=== PATIENT | male | born 1945 | race Hispanic/Latino ===

== ENCOUNTER 2017-07-03 14:06 | Inpatient (IN) | payer MEDICARE ==
[2017-07-03 17:45] LABS: Hematocrit 32.5 % (35.5-45.6); Hemoglobin 11.3 gm/dl (11.8-15.2); Mean Corpuscular HGB Conc 35 % (32-34); Mean Corpuscular Hemoglobin 30 pg (28-32); Mean Corpuscular Volume 87 fl (84-94); Platelet Count 142 K/mm3 (140-440); Red Blood Count 3.75 M/mm3 (3.65-5.03); Red Cell Distribution Width 14.5 % (13.2-15.2)
[2017-07-03 18:14] LABS: Albumin 3.5 g/dL (3.9-5); Calcium 8.2 mg/dL (8.4-10.2)
--- NOTE | 2017-07-03 20:44 | History and Physical Report ---
History of Present Illness Date of admission: 07/03/17 16:46 Chief complaint: My legs are swollen, and im short of breath History of present illness: 72 YO Male with Systolic CHF, HTN, DM, CKD-3, Anemia, vitamin D Deficiency admitted directly at the request for [facility] for CHF Decompensation. Pt seen and evaluated upon arrival to telemetry floor. 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 Pt acknowledges leg swelling, and shortness of breath, Orthopnea/PND. Pt denies fever, chill, CP, Palpitations, NVD, Medication Noncompliance, Syncope, Trauma, Productive cough, unilateral leg swelling, prolonged travel/immobility, individual/family history of DVT/PE. Pt found to have symptoms of Acute CHF decompensation. Pt initiated on CHF protocol. Past History Past Medical History: cancer, diabetes, heart failure, hyperlipidemia, renal failure Past Surgical History: bowel surgery Social history: , lives with family. denies: smoking, alcohol abuse, prescription drug abuse Family history: diabetes, hypertension Medications and Allergies Allergies Allergy/AdvReac Type Severity Reaction Status Date / Time No Known Allergies Allergy Unverified 07/03/17 14:13 Home Medications Medication Instructions Recorded Confirmed Last Taken Type Allopurinol 100 mg PO 07/03/17 07/02/17 History Aspirin 81 mg PO 07/03/17 07/02/17 History Fish Oil EC 1,200 mg Softgel 1,200 mg 07/03/17 07/02/17 History Furosemide [Lasix TAB] 40 mg PO 07/03/17 07/02/17 History Hydralazine HCl 50 mg PO 07/03/17 07/02/17 History Losartan Potassium 25 mg PO 07/03/17 07/02/17 History Metoprolol [Lopressor TAB] 5 mg PO 07/03/17 1 Day Ago History ~07/02/17 Vitamin D3 1,000 units PO 07/03/17 07/02/17 History amLODIPine [Norvasc] 10 mg PO 07/03/17 07/02/17 History cloNIDine [Catapres] 0.2 mg PO 07/03/17 1 Day Ago History ~07/02/17 glipiZIDE [glipiZIDE XL] 5 mg PO 07/03/17 07/02/17 10:00 History Active Meds: Active Medications Furosemide (Lasix) 40 mg IV BID TETE Review of Systems Constitutional: weight gain, no fever, no chills, no sweats, no night sweats Ears, nose, mouth and throat: no ear pain, no ear discharge, no tinnitis, no decreased hearing, no nose pain, no nasal congestion, no nasal discharge, no sinus pressure Cardiovascular: orthopnea, shortness of breath, paroxysmal nocturnal dyspnea, leg edema, decreased exercise tolerance, no chest pain, no palpitations, no rapid/irregular heart beat Respiratory: no cough with sputum, no excessive sputum, no hemoptysis Gastrointestinal: no abdominal pain, no nausea, no vomiting, no diarrhea, no constipation, no change in bowel habits Genitourinary Male: no hematuria, no flank pain, no discharge, no urinary frequency, no urinary hesitancy, no nocturia Rectal: no pain, no incontinence, no bleeding Musculoskeletal: no neck pain, no shooting arm pain, no arm numbness/tingling, no low back pain, no shooting leg pain Integumentary: no rash, no pruritis, no redness, no sores, no wounds, no jaundice Neurological: no head injury, no transient paralysis, no paralysis, no weakness , no parathesias, no numbness, no tingling, no seizures, no syncope Psychiatric: no anxiety, no memory loss, no change in sleep habits, no sleep disturbances, no insomnia Endocrine: no cold intolerance, no heat intolerance, no polyphagia, no excessive thirst, no polydipsia, no polyuria, no other Hematologic/Lymphatic: no easy bruising, no easy bleeding, no lymphadenopathy, no lymphedema Allergic/Immunologic: no urticaria, no allergic rhinitis, no wheezing Exam - Constitutional Vitals: Temp Pulse Resp BP Pulse Ox 97.7 F 53 L 53 H 190/74 97 07/03/17 19:11 07/03/17 19:12 07/03/17 19:11 07/03/17 17:57 07/03/17 19:12 General appearance: Present: mild distress, obese - EENT Eyes: Present: PERRL ENT: hearing intact, clear oral mucosa - Neck Neck: Present: supple, normal ROM - Respiratory Respiratory effort: labored Respiratory: bilateral: diminished, wheezing - Cardiovascular Heart Sounds: Present: S1 & S2. Absent: rub, click - Extremities Extremities: pulses symmetrical, No edema Extremity abnormal: edema Peripheral Pulses: within normal limits - Abdominal General gastrointestinal: Present: soft, non-tender, non-distended, normal bowel sounds Male genitourinary: Present: normal - Integumentary Integumentary: Present: clear, warm, dry - Musculoskeletal Musculoskeletal: gait normal, strength equal bilaterally - Psychiatric Psychiatric: appropriate mood/affect, intact judgment & insight - Neurologic Neurologic: CNII-XII intact, moves all extremities Results - Labs CBC & Chem 7: 18 17:33 18 17:33 Labs: Abnormal lab results 07/03/1718 Range/Units 17:33 17:33 Hgb 11.3 L (11.8-15.2) gm/dl Hct 32.5 L (35.5-45.6) % MCHC 35 H (32-34) % BUN 25 H (9-20) mg/dL Creatinine 2.3 H (0.8-1.5) mg/dL Glucose 112 H (75-100) mg/dL Calcium 8.2 L (8.4-10.2) mg/dL Alkaline Phosphatase 136 H (35-129) units/L NT-Pro-B Natriuret Pep 2219 H (0-900) pg/mL Albumin 3.5 L (3.9-5) g/dL Assessment and Plan - Patient Problems (1) CHF (congestive heart failure) Current Visit: Yes Status: Acute Qualifiers: Heart failure type: systolic Heart failure chronicity: acute on chronic Qualified Code(s): I50.23 - Acute on chronic systolic (congestive) heart failure Plan to address problem: Direct Admit to telemetry as per Cardiology request :Diuresis, supplemental oxygen, nebulizer therapy, strici I/O, Daily weight, further orders and cardiology testing as per cardiology team. (2) Acute respiratory failure Current Visit: Yes Status: Acute Qualifiers: Respiratory failure complication: hypoxia Qualified Code(s): J96.01 - Acute respiratory failure with hypoxia Plan to address problem: supplemental oxygen, nebulizer therapy, treat CHF, diuresis, supportive care, NIPPV as clinically indicated (3) HTN (hypertension) Current Visit: Yes Status: Acute Qualifiers: Hypertension type: essential hypertension Qualified Code(s): I10 - Essential (primary) hypertension Plan to address problem: resume home medication, monitor BP q shift, IV hydralazine prn (4) CKD (chronic kidney disease), stage III Current Visit: Yes Status: Acute Plan to address problem: supportive care, monitor uop q shift, strict I/O, avoid nephrotoxic agents (5) Diabetes Current Visit: Yes Status: Acute Plan to address problem: Consistent Carbohydrate diet, Insulin, accu check (6) DVT prophylaxis Current Visit: Yes Status: Acute Plan to address problem: SCD to BLE while in bed
[2017-07-03] MEDS ORDERED: TYLENOL PO PRN (20:47)
[2017-07-03] MEDS ORDERED: PROVENTIL IH PRN (20:47)
[2017-07-03] MEDS ORDERED: SODIUM CHLORIDE FLUSH SYRINGE 10 ML IV PRN (20:47)
[2017-07-03] MEDS ORDERED: ZOFRAN IV PRN (20:47)
[2017-07-03] MEDS ORDERED: D50W (25GM) Syringe IV PRN (21:05)
--- NOTE | 2017-07-03 21:28 | XRay Report ---
FINAL REPORT PROCEDURE: XR CHEST 1V AP TECHNIQUE: Chest radiograph anteroposterior view. CPT 80142 HISTORY: HF, sob COMPARISON: No prior studies are available for comparison. FINDINGS: Heart: Heart is mildly enlarged. There has been open heart surgery. Mediastinum/Vessels: Normal. Lungs/Pleural space: The right hemidiaphragm is slightly elevated. There atelectasis and/or infiltrate at the right lung base. There are no pleural effusions. There is no pneumothorax.. Bony thorax: No acute osseous abnormality. Life support devices: None. IMPRESSION: Heart is mildly enlarged. There has been open heart surgery. The right hemidiaphragm is slightly elevated. There atelectasis and/or infiltrate at the right lung base. There are no pleural effusions. There is no pneumothorax.. .
[2017-07-03] MEDS: LASIX IV SCH (22:25)
[2017-07-03] MEDS: SODIUM CHLORIDE FLUSH SYRINGE 10 ML IV SCH (22:25)
[2017-07-03] MEDS: CATAPRES PO SCH (22:25)
[2017-07-03] MEDS: APRESOLINE IV PRN (22:26)
[2017-07-04] MEDS: HumuLIN R SUB-Q SCH ×4 (03:51→16:56)
[2017-07-04] MEDS ORDERED: NON-FORMULARY (Aspirin 81 MG) PO SCH (10:00)
[2017-07-04] MEDS ORDERED: LOPRESSOR PO SCH ×3 (10:00→22:00)
[2017-07-04] MEDS: NORVASC PO SCH (10:24)
[2017-07-04] MEDS: CATAPRES PO SCH ×2 (10:26→22:20)
[2017-07-04] MEDS: ZYLOPRIM PO SCH (10:27)
[2017-07-04] MEDS: LASIX IV SCH ×2 (10:27→22:20)
[2017-07-04] MEDS: BABY ASPIRIN PO SCH (10:27)
[2017-07-04] MEDS: SODIUM CHLORIDE FLUSH SYRINGE 10 ML IV SCH (10:27)
--- NOTE | 2017-07-04 12:33 | Consultation ---
History of Present Illness Consult date: 07/04/17 Requesting physician: RAY IRELAND History of present illness: The pt is a 73 YO male with a past medical history significant for CAD s/p CABG x5 at [facility] in 2011, HTN, DM, CKD, heart failure, cardiomyopathy. He was seen in our office in consultation yesterday per Dr. Zaire Christina. Pt presented to our office with c/o progressively worsening SOB, BEASLEY, orthopnea, PND and BLE edema for several weeks prior to arrival. He was found to be in heart failure and was directly admitted per Dr. Ireland for further eval/management. Pt denies any chest pain, palpitations, n/v, diaphoresis, dizziness or syncope. Echo done in our office yesterday showed normal LV function with mild diastolic dysfunction. Past History Past Medical History: diabetes, heart failure, hypertension, renal failure Past Surgical History: CABG, bowel surgery Social history: , lives with family. denies: smoking, alcohol abuse, prescription drug abuse Family history: diabetes, hypertension Medications and Allergies Allergies Allergy/AdvReac Type Severity Reaction Status Date / Time No Known Allergies Allergy Unverified 07/03/17 14:13 Home Medications Medication Instructions Recorded Confirmed Last Taken Type Allopurinol 100 mg PO BID 07/03/17 07/04/17 Unknown History Aspirin 81 mg PO DAILY 07/03/17 07/04/17 Unknown History Fish Oil EC 1,200 mg Softgel 1,200 mg DAILY 07/03/17 07/04/17 Unknown History Furosemide [Lasix TAB] 40 mg PO DAILY 07/03/17 07/04/17 Unknown History Hydralazine HCl 50 mg PO Q8H 07/03/17 07/04/17 Unknown History Losartan Potassium 25 mg PO DAILY 07/03/17 07/04/17 Unknown History Metoprolol [Lopressor TAB] 5 mg PO BID 07/03/17 07/04/17 Unknown History Vitamin D3 1,000 units PO QWEEK 07/03/17 07/04/17 Unknown History amLODIPine [Norvasc] 10 mg PO DAILY 07/03/17 07/04/17 Unknown History cloNIDine [Catapres] 0.2 mg PO BID 07/03/17 07/04/17 Unknown History glipiZIDE [glipiZIDE XL] 5 mg PO BID 07/03/17 07/04/17 Unknown History Active Meds: Active Medications Acetaminophen (Tylenol) 650 mg PO Q4H PRN PRN Reason: Pain MILD(1-3)/Fever >100.5/ZARATE Albuterol (Proventil) 2.5 mg IH Q4HRT PRN PRN Reason: Shortness Of Breath Allopurinol (Zyloprim) 100 mg PO DAILY [facility] Last Admin: 07/04/17 10:27 Dose: 100 mg Amlodipine Besylate (Norvasc) 10 mg PO DAILY [facility] Last Admin: 07/04/17 10:24 Dose: 10 mg Aspirin (Baby Aspirin) 81 mg PO QDAY [facility] Last Admin: 07/04/17 10:27 Dose: 81 mg Clonidine HCl (Catapres) 0.2 mg PO Q12HR [facility] Last Admin: 07/04/17 10:26 Dose: 0.2 mg Dextrose (D50w (25gm) Syringe) 50 ml IV PRN PRN PRN Reason: Hypoglycemia Furosemide (Lasix) 40 mg IV BID [facility] Last Admin: 07/04/17 10:27 Dose: 40 mg Hydralazine HCl (Apresoline) 10 mg IV Q4HR PRN PRN Reason: Hypertension Last Admin: 07/03/17 22:26 Dose: 10 mg Insulin Human Regular (Humulin R) 0 units SUB-Q ACHS [facility]; Protocol Metoprolol Tartrate (Lopressor) 50 mg PO QDAY [facility] Ondansetron HCl (Zofran) 4 mg IV Q8H PRN PRN Reason: Nausea And Vomiting Sodium Chloride (Sodium Chloride Flush Syringe 10 Ml) 10 ml IV PRN PRN PRN Reason: LINE FLUSH Sodium Chloride (Sodium Chloride Flush Syringe 10 Ml) 10 ml IV BID [facility] Last Admin: 07/04/17 10:27 Dose: 10 ml Review of Systems Constitutional: no fever, no chills, no sweats Ears, nose, mouth and throat: no nose pain, no sinus pressure, no sinus pain Cardiovascular: orthopnea, edema, shortness of breath, dyspnea on exertion, paroxysmal nocturnal dyspnea, high blood pressure, leg edema, decreased exercise tolerance, no chest pain, no palpitations, no rapid/irregular heart beat, no syncope, no lightheadedness Respiratory: shortness of breath, dyspnea on exertion, no cough, no congestion, no wheezing, no pain on inspiration Gastrointestinal: no abdominal pain, no nausea, no vomiting, no diarrhea, no constipation, no change in bowel habits, no hematemesis Genitourinary Male: no dysuria, no hematuria, no flank pain, no discharge, no urinary frequency, no urinary hesitancy Musculoskeletal: no neck stiffness, no neck pain, no shooting arm pain, no arm numbness/tingling, no low back pain, no shooting leg pain, no leg numbness/ tingling, no redness of joints Integumentary: no rash, no pruritis, no redness, no sores, no wounds Neurological: no head injury, no paralysis, no weakness, no parathesias, no numbness, no tingling, no seizures, no syncope Psychiatric: no anxiety Endocrine: no cold intolerance, no heat intolerance Hematologic/Lymphatic: no easy bruising, no easy bleeding Allergic/Immunologic: no urticaria, no wheezing, no persistent infections Physical Examination Vital Signs Pulse 59 L 07/03/17 17:02 General appearance: no acute distress HEENT: Positive: PERRL, Normocephaly, Mucus Membranes Moist Neck: Positive: neck supple, trachea midline Cardiac: Positive: Reg Rate and Rhythm, S1/S2, Systolic Murmur Lungs: Positive: Decreased Breath Sounds Neuro: Positive: Grossly Intact, Cranial Nerve 2-12 Intact Abdomen: Positive: Soft. Negative: Tender Skin: Positive: Clear. Negative: Rash, Wound Musculoskeletal: No Pain, Normal Range of Motion Extremities: Present: +2 Edema (BLE) Results 07/03/17 17:33 07/03/17 17:33 Cardiac Enzymes 07/03/17 Range/Units 17:33 AST 21 (5-40) units/L CBC 07/03/17 Range/Units 17:33 WBC 6.7 (4.5-11.0) K/mm3 RBC 3.75 (3.65-5.03) M/mm3 Hgb 11.3 L (11.8-15.2) gm/dl Hct 32.5 L (35.5-45.6) % Plt Count 142 (140-440) K/mm3 Comprehensive Metabolic Panel 07/03/17 Range/Units 17:33 Sodium 142 (137-145) mmol/L Potassium 4.4 (3.6-5.0) mmol/L Chloride 102.6 (98-107) mmol/L Carbon Dioxide 22 (22-30) mmol/L BUN 25 H (9-20) mg/dL Creatinine 2.3 H (0.8-1.5) mg/dL Glucose 112 H (75-100) mg/dL Calcium 8.2 L (8.4-10.2) mg/dL AST 21 (5-40) units/L ALT 16 (7-56) units/L Alkaline Phosphatase 136 H (35-129) units/L Total Protein 6.7 (6.3-8.2) g/dL Albumin 3.5 L (3.9-5) g/dL - Imaging and Cardiology Echo: report reviewed EKG: report reviewed, image reviewed EKG interpretations - Telemetry EKG Rhythm: Sinus Rhythm - EKG Sinus rhythms and dysrhythmias: sinus rhythm Assessment and Plan Assessment: Acute diastolic heart failure CAD s/p CABG Accelerated HTN DM CKD Plan: Cont diuresis with IV lasix. Monitor renal indices. Optimize anti-hypertensive regimen. Obtain nephrology consultation. Assessment and plan reviewed with pt at bedside. The patient has been seen in conjunction with Dr. Zaire Christina who agrees with the assessment and plan of care.
[2017-07-04] MEDS ORDERED: LOPRESSOR PO NR (13:00)
[2017-07-04 13:41] LABS: Calcium 8.4 mg/dL (8.4-10.2)
--- NOTE | 2017-07-04 17:33 | Consultation ---
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 Pt was directly admitted for IV diuretic therapy. renal consult was requested for management of TAPAN on CKD along with volume management. Pt was last seen by me in Apr 2017, when his baseline Cr was around 1.9- 2mg/dl, at that time patient was found to have worsening proteinuria in nephrotic range, and was restarted on losartan. Pt denies fever, chills, nausea, vomiting, CP, palpitations, dysuria, rash, dizziness, blurry vision, no recent NSAIDs or IV contrast exposure reported. Echo in cardiology office reportedly showed normal LV function with mild diastolic dysfunction. Past History Past Medical History: diabetes, heart failure, hypertension, renal failure Past Surgical History: CABG, bowel surgery Social history: , lives with family. denies: smoking, alcohol abuse, prescription drug abuse Family history: diabetes, hypertension Medications and Allergies Allergies Allergy/AdvReac Type Severity Reaction Status Date / Time No Known Allergies Allergy Unverified 07/03/17 14:13 Home Medications Medication Instructions Recorded Confirmed Last Taken Type Allopurinol 100 mg PO BID 07/03/17 07/04/17 Unknown History Aspirin 81 mg PO DAILY 07/03/17 07/04/17 Unknown History Fish Oil EC 1,200 mg Softgel 1,200 mg DAILY 07/03/17 07/04/17 Unknown History Furosemide [Lasix TAB] 40 mg PO DAILY 07/03/17 07/04/17 Unknown History Hydralazine HCl 50 mg PO Q8H 07/03/17 07/04/17 Unknown History Losartan Potassium 25 mg PO DAILY 07/03/17 07/04/17 Unknown History Metoprolol [Lopressor TAB] 5 mg PO BID 07/03/17 07/04/17 Unknown History Vitamin D3 1,000 units PO QWEEK 07/03/17 07/04/17 Unknown History amLODIPine [Norvasc] 10 mg PO DAILY 07/03/17 07/04/17 Unknown History cloNIDine [Catapres] 0.2 mg PO BID 07/03/17 07/04/17 Unknown History glipiZIDE [glipiZIDE XL] 5 mg PO BID 07/03/17 07/04/17 Unknown History Active Meds: Active Medications Acetaminophen (Tylenol) 650 mg PO Q4H PRN PRN Reason: Pain MILD(1-3)/Fever >100.5/ZARATE Albuterol (Proventil) 2.5 mg IH Q4HRT PRN PRN Reason: Shortness Of Breath Allopurinol (Zyloprim) 100 mg PO DAILY [facility] 234 BEDS AT [facility] Last Admin: 07/04/17 10:27 Dose: 100 mg Amlodipine Besylate (Norvasc) 10 mg PO DAILY [facility]CLUDE 234 BEDS AT [facility] Last Admin: 07/04/17 10:24 Dose: 10 mg Aspirin (Baby Aspirin) 81 mg PO QDAY [facility]S [facility]CLUDE 234 BEDS AT [facility] Last Admin: 07/04/17 10:27 Dose: 81 mg Clonidine HCl (Catapres) 0.2 mg PO Q12HR [facility]S [facility]CLUDE 234 BEDS AT [facility] Last Admin: 07/04/17 10:26 Dose: 0.2 mg Dextrose (D50w (25gm) Syringe) 50 ml IV PRN PRN PRN Reason: Hypoglycemia Furosemide (Lasix) 40 mg IV BID [facility]CLUDE 234 BEDS AT [facility] Last Admin: 07/04/17 10:27 Dose: 40 mg Hydralazine HCl (Apresoline) 10 mg IV Q4HR PRN PRN Reason: Hypertension Last Admin: 07/03/17 22:26 Dose: 10 mg Insulin Human Regular (Humulin R) 0 units SUB-Q [facility]CLUDE 234 BEDS AT THE [facility]; Protocol Last Admin: 07/04/17 16:56 Dose: Not Given Metoprolol Tartrate (Lopressor) 100 mg PO BID [facility]CLUDE 234 BEDS AT [facility] Ondansetron HCl (Zofran) 4 mg IV Q8H PRN PRN Reason: Nausea And Vomiting Sodium Chloride (Sodium Chloride Flush Syringe 10 Ml) 10 ml IV PRN PRN PRN Reason: LINE FLUSH Sodium Chloride (Sodium Chloride Flush Syringe 10 Ml) 10 ml IV BID [facility]CLUDE 234 BEDS AT [facility] Last Admin: 07/04/17 10:27 Dose: 10 ml Review of Systems All systems: negative Constitutional: weakness Cardiovascular: orthopnea, edema, shortness of breath, dyspnea on exertion, paroxysmal nocturnal dyspnea Exam - Vital Signs Vital signs: Vital Signs Pulse 59 L 07/03/17 17:02 - General Appearance General appearance: well-developed, well-nourished, appears stated age, obese EENT: ATNC, PERRL, mucous membranes moist Neck: Present: neck supple Respiratory: Decreased Breath Sounds Heart: regular, S1S2 Gastrointestinal: Present: normoactive bowel sounds, obese Integumentary: no rash, other (2-3+ b/l LE edema ) Neurologic: no focal deficit, alert and oriented x3, strength 5/5, CN 3-12 intact Psychiatric: mood/affect appropriate, cooperative Results - Lab Results 07/03/17 17:33 07/04/17 13:06 Most recent lab results Calcium 8.4 mg/dL (8.4-10.2) 07/04/17 13:06 Laboratory Tests 07/03/17 17:33 Calcium 8.2 L Total Bilirubin 0.50 AST 21 ALT 16 Alkaline Phosphatase 136 H NT-Pro-B Natriuret Pep 2219 H Total Protein 6.7 Albumin 3.5 L Albumin/Globulin Ratio 1.1 Assessment and Plan - Patient Problems (1) Acute respiratory failure Current Visit: Yes Status: Acute Qualifiers: Respiratory failure complication: hypoxia Qualified Code(s): J96.01 - Acute respiratory failure with hypoxia Plan to address problem: respiratory status improved with IV lasix, will add metolazone for further volume control. (2) Fluid overload Current Visit: Yes Status: Acute Plan to address problem: likely due to combination of nephrotic syndrome, CKD and chronic diastolic HF. Will cont IV lasix 40mg bid along with metolazone 10mg po qd. will titrate diuretics to target net negative fluid balance < 1L/day. (3) Type 2 diabetes mellitus with diabetic chronic kidney disease Current Visit: Yes Status: Chronic Qualifiers: Chronic kidney disease stage: stage 3 (moderate) Plan to address problem: glucose control as per primary attending (4) Nephrotic range proteinuria Current Visit: Yes Status: Acute Plan to address problem: likely secondary to diabetic nephropathy. cont losartan. glucose control as per primary attending. (5) CHF (congestive heart failure) Current Visit: Yes Status: Acute Qualifiers: Heart failure type: diastolic Heart failure chronicity: acute on chronic Qualified Code(s): I50.33 - Acute on chronic diastolic (congestive) heart failure Plan to address problem: cont BB, diuresis with lasix/metolazone. follow cardiology recommendations. fluid restriction to 1.5L/day, daily weight, strict I/Os (6) Hypertensive chronic kidney disease with stage 1 through stage 4 chronic kidney disease, or unspecified chronic kidney disease Current Visit: Yes Status: Chronic Plan to address problem: BP remains elevated, added metolazone 10mg po qd for further volume / BP control. pt is on amlodipine 10mg po qd. Since pt's eGFR is not far from baseline, will also cont losartan 25mg po qd for now, will titrate up if renal function/K remains stable. (7) CKD (chronic kidney disease), stage III Current Visit: Yes Status: Chronic Plan to address problem: due to underlying diabetic nephropathy/hypertensive nephrosclerosis. current eGFR marginally worse than baseline in the setting of IV diuresis. avoid nephrotoxins, NSAIDs, IV contrast
[2017-07-04] MEDS ORDERED: ZAROXOLYN PO SCH (18:00)
--- NOTE | 2017-07-04 19:27 | Progress Note ---
Assessment and Plan Assessment and plan: 72 YO Male with Systolic CHF, HTN, DM, CKD-3, Anemia, vitamin D Deficiency admitted directly at the request for [facility] for CHF Decompensation. Pt seen and evaluated upon arrival to telemetry floor. 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 Pt acknowledges leg swelling, and shortness of breath, Orthopnea/PND. Pt denies fever, chill, CP, Palpitations, NVD, Medication Noncompliance, Syncope, Trauma, Productive cough, unilateral leg swelling, prolonged travel/immobility, individual/family history of DVT/PE. Pt found to have symptoms of Acute CHF decompensation. Pt initiated on CHF protocol. (1) CHF (congestive heart failure) Current Visit: Yes Status: Acute Qualifiers: Heart failure type: systolic Heart failure chronicity: acute on chronic Qualified Code(s): I50.23 - Acute on chronic systolic (congestive) heart failure Plan to address problem: Direct Admit to telemetry as per Cardiology request :Diuresis, supplemental oxygen, nebulizer therapy, strici I/O, Daily weight, further orders and cardiology testing as per cardiology team. (2) Acute respiratory failure Current Visit: Yes Status: Acute Qualifiers: Respiratory failure complication: hypoxia Qualified Code(s): J96.01 - Acute respiratory failure with hypoxia Plan to address problem: supplemental oxygen, nebulizer therapy, treat CHF, diuresis, supportive care, NIPPV as clinically indicated (3) HTN (hypertension) Current Visit: Yes Status: Acute Qualifiers: Hypertension type: essential hypertension Qualified Code(s): I10 - Essential (primary) hypertension Plan to address problem: resume home medication, monitor BP q shift, IV hydralazine prn (4) CKD (chronic kidney disease), stage III Current Visit: Yes Status: Acute Plan to address problem: supportive care, monitor uop q shift, strict I/O, avoid nephrotoxic agents (5) Diabetes Current Visit: Yes Status: Acute Plan to address problem: Consistent Carbohydrate diet, Insulin, accu check (6) DVT prophylaxis Current Visit: Yes Status: Acute Plan to address problem: SCD to BLE while in bed History Interval history: PATIENT SEEN AND EXAMINED, REPORTS IMPROVEMENT IN SYMPTOMS BUT STILL REPORTS ORTHOPNEA Hospitalist Physical - Physical exam Narrative exam: VITAL SIGNS: Reviewed. GENERAL: The patient appeared well nourished and normally developed. Vital signs as documented. HEAD: No signs of head trauma. EYES: Pupils are equal. Extraocular motions intact. EARS: Hearing grossly intact. MOUTH: Oropharynx is normal. NECK: No adenopathy, no JVD. CHEST: Chest with clear breath sounds bilaterally. No wheezes, rales, or rhonchi. CARDIAC: Regular rate and rhythm. S1 and S2, without murmurs, gallops, or rubs. VASCULAR: 2+ bilateral lower extremity edema. Some. Peripheral pulses normal and equal in all extremities. ABDOMEN: Soft, without detectable tenderness. No sign of distention. No rebound or guarding, and no masses palpated. Bowel Sounds normal. MUSCULOSKELETAL: Good range of motion of all major joints. Extremities without clubbing, cyanosis 2+ bilateral lower extremity edema. NEUROLOGIC EXAM: Alert and oriented x 3. No focal sensory or strength deficits. Speech normal. Follows commands. PSYCHIATRIC: Mood normal. SKIN: No rash or lesions. - Constitutional Vitals: Temp Pulse Resp BP Pulse Ox 98.7 F 53 L 18 177/75 95 07/04/17 16:34 07/04/17 17:48 07/04/17 16:34 07/04/17 16:34 07/04/17 16:34 General appearance: Present: no acute distress Results - Labs CBC & Chem 7: 07/05/17 07:17 07/05/17 07:17 Labs: Laboratory Last Values WBC 6.7 K/mm3 (4.5-11.0) 07/03/17 17:33 RBC 3.75 M/mm3 (3.65-5.03) 07/03/17 17:33 Hgb 11.3 gm/dl (11.8-15.2) L 07/03/17 17:33 Hct 32.5 % (35.5-45.6) L 07/03/17 17:33 MCV 87 fl (84-94) 07/03/17 17:33 MCH 30 pg (28-32) 07/03/17 17:33 MCHC 35 % (32-34) H 07/03/17 17:33 RDW 14.5 % (13.2-15.2) 07/03/17 17:33 Plt Count 142 K/mm3 (140-440) 07/03/17 17:33 Sodium 141 mmol/L (137-145) 07/04/17 13:06 Potassium 4.0 mmol/L (3.6-5.0) 07/04/17 13:06 Chloride 101.3 mmol/L (98-107) 07/04/17 13:06 Carbon Dioxide 25 mmol/L (22-30) 07/04/17 13:06 Anion Gap 19 mmol/L 07/04/17 13:06 BUN 26 mg/dL (9-20) H 07/04/17 13:06 Creatinine 2.3 mg/dL (0.8-1.5) H 07/04/17 13:06 Estimated GFR 28 ml/min 07/04/17 13:06 BUN/Creatinine Ratio 11 % 07/04/17 13:06 Glucose 153 mg/dL (75-100) H 07/04/17 13:06 POC Glucose 168 (70-105) H 07/04/17 12:42 Calcium 8.4 mg/dL (8.4-10.2) 07/04/17 13:06 Total Bilirubin 0.50 mg/dL (0.1-1.2) 07/03/17 17:33 AST 21 units/L (5-40) 07/03/17 17:33 ALT 16 units/L (7-56) 07/03/17 17:33 Alkaline Phosphatase 136 units/L (35-129) H 07/03/17 17:33 NT-Pro-B Natriuret Pep 2219 pg/mL (0-900) H 07/03/17 17:33 Total Protein 6.7 g/dL (6.3-8.2) 07/03/17 17:33 Albumin 3.5 g/dL (3.9-5) L 07/03/17 17:33 Albumin/Globulin Ratio 1.1 % 07/03/17 17:33
[2017-07-04 20:23] LABS: Creatinine,Urine 35.2 mg/dL (0.1-20.0)
[2017-07-04] MEDS: ZAROXOLYN PO SCH (22:19)
[2017-07-04] MEDS: LOPRESSOR PO SCH (22:20)
[2017-07-05] MEDS: SODIUM CHLORIDE FLUSH SYRINGE 10 ML IV SCH ×3 (00:43→22:08)
[2017-07-05 07:35] LABS: Hematocrit 31.9 % (35.5-45.6); Hemoglobin 10.8 gm/dl (11.8-15.2); Mean Corpuscular HGB Conc 34 % (32-34); Mean Corpuscular Hemoglobin 29 pg (28-32); Mean Corpuscular Volume 87 fl (84-94); Platelet Count 122 K/mm3 (140-440); Red Blood Count 3.69 M/mm3 (3.65-5.03); Red Cell Distribution Width 14.5 % (13.2-15.2)
[2017-07-05 07:58] LABS: Calcium 8.2 mg/dL (8.4-10.2)
[2017-07-05] MEDS: HumuLIN R SUB-Q SCH ×5 (08:01→22:04)
[2017-07-05] MEDS: LASIX IV SCH ×2 (09:36→21:56)
[2017-07-05] MEDS: NORVASC PO SCH (09:37)
[2017-07-05] MEDS: COZAAR PO SCH (09:37)
[2017-07-05] MEDS: LOPRESSOR PO SCH ×2 (09:37→22:07)
[2017-07-05] MEDS: ZAROXOLYN PO SCH (09:37)
[2017-07-05] MEDS: CATAPRES PO SCH ×2 (09:38→17:44)
[2017-07-05] MEDS: ZYLOPRIM PO SCH (09:38)
[2017-07-05] MEDS: BABY ASPIRIN PO SCH (09:38)
[2017-07-05] MEDS: APRESOLINE PO SCH ×3 (10:13→21:56)
--- NOTE | 2017-07-05 12:22 | Progress Note ---
Assessment and Plan Assessment: Acute diastolic heart failure TAPAN on CKD Nephrotic syndrome CAD s/p CABG Accelerated HTN DM Plan: Echo report from office reviewed - EF 50-55%, impaired relaxation, moderate AV sclerosis without stenosis or regurgitation, moderate pericardial effusion ( adjacent to RA), no evidence of RA collapse or tamponade physiology. Cont diuresis with IV lasix and zaroxolyn. Monitor renal indices closely. Nephrology consultation and recommendations noted and appreciated. Optimize anti-hypertensive regimen - losartan resumed per nephrology. Assessment and plan reviewed with pt at bedside. The patient has been seen in conjunction with Dr. Zaire Christina who agrees with the assessment and plan of care. Subjective Date of service: 07/05/17 Principal diagnosis: HF; TAPAN on CKD Interval history: pt lying flat comfortably in bed, no current complaints. BLE edema slowly improving. at bedside. BPs remain labile. Objective Last Vital Signs Temp 97.5 F L 07/05/17 08:51 Pulse 61 07/05/17 08:51 Resp 14 07/05/17 08:51 BP 198/81 07/05/17 08:51 Pulse Ox 97 07/05/17 08:51 - Physical Examination HEENT: Positive: PERRL, Normocephaly, Mucus Membranes Moist Neck: Positive: neck supple Cardiac: Positive: Reg Rate and Rhythm, S1/S2 Lungs: Positive: Decreased Breath Sounds Neuro: Positive: Grossly Intact, Cranial Nerve 2-12 Intact Abdomen: Positive: Soft. Negative: Tender Skin: Positive: Clear. Negative: Rash, Wound Musculoskeletal: No Pain, Normal Range of Motion Extremities: Present: +2 Edema (BLE) - Labs and Meds CBC 07/05/17 Range/Units 07:17 WBC 5.4 (4.5-11.0) K/mm3 RBC 3.69 (3.65-5.03) M/mm3 Hgb 10.8 L (11.8-15.2) gm/dl Hct 31.9 L (35.5-45.6) % Plt Count 122 L (140-440) K/mm3 Comprehensive Metabolic Panel 07/04/17 07/05/17 Range/Units 13:06 07:17 Sodium 141 142 (137-145) mmol/L Potassium 4.0 3.8 (3.6-5.0) mmol/L Chloride 101.3 102.7 (98-107) mmol/L Carbon Dioxide 25 26 (22-30) mmol/L BUN 26 H 30 H (9-20) mg/dL Creatinine 2.3 H 2.4 H (0.8-1.5) mg/dL Glucose 153 H 127 H (75-100) mg/dL Calcium 8.4 8.2 L (8.4-10.2) mg/dL - Imaging and Cardiology EKG: report reviewed, image reviewed Echo: report reviewed ( EF 50-55%, impaired relaxation, moderate AV sclerosis without stenosis or regurgitation, moderate pericardial effusion (adjacent to RA ), no evidence of RA collapse or tamponade physiology. ) - Telemetry EKG Rhythm: Sinus Rhythm - EKG Sinus rhythms and dysrhythmias: sinus rhythm
--- NOTE | 2017-07-05 15:23 | Progress Note ---
Assessment and Plan - Patient Problems (1) Acute respiratory failure Current Visit: Yes Status: Acute Qualifiers: Respiratory failure complication: hypoxia Qualified Code(s): J96.01 - Acute respiratory failure with hypoxia Plan to address problem: respiratory status improved with IV lasix and on midodrine. increased UOP (2) Fluid overload Current Visit: Yes Status: Acute Plan to address problem: likely due to combination of nephrotic syndrome, CKD and chronic diastolic HF. Will cont IV lasix 40mg bid along with metolazone 10mg po qd. will titrate diuretics to target net negative fluid balance > 1L/day. (3) Type 2 diabetes mellitus with diabetic chronic kidney disease Current Visit: Yes Status: Chronic Qualifiers: Chronic kidney disease stage: stage 3 (moderate) Plan to address problem: glucose control as per primary attending (4) Nephrotic range proteinuria Current Visit: Yes Status: Acute Plan to address problem: urine protein/cr ratio of ~10g/g, likely secondary to diabetic nephropathy. cont losartan. glucose control as per primary attending. (5) CHF (congestive heart failure) Current Visit: Yes Status: Acute Qualifiers: Heart failure type: diastolic Heart failure chronicity: acute on chronic Qualified Code(s): I50.33 - Acute on chronic diastolic (congestive) heart failure Plan to address problem: cont BB, diuresis with lasix/metolazone. follow cardiology recommendations. fluid restriction to 1.5L/day, daily weight, strict I/Os (6) Hypertensive chronic kidney disease with stage 1 through stage 4 chronic kidney disease, or unspecified chronic kidney disease Current Visit: Yes Status: Chronic Plan to address problem: BP improved, monitor on current meds. (7) CKD (chronic kidney disease), stage III Current Visit: Yes Status: Chronic Plan to address problem: due to underlying diabetic nephropathy/hypertensive nephrosclerosis. current eGFR marginally worse than baseline in the setting of IV diuresis. avoid nephrotoxins, NSAIDs, IV contrast Subjective Date of service: 07/05/17 Principal diagnosis: HF; TAPAN on CKD Interval history: Pt awake, alert, in NAD, responding to IV lasix with increased UOP Objective - Vital Signs Vital signs: Vital Signs - 12hr 07/05/17 07/05/17 07/05/17 04:27 08:51 11:50 Temperature 98.1 F 97.5 F L 98.7 F Pulse Rate 53 L 61 Respiratory 18 14 18 Rate Blood Pressure 153/47 198/81 164/56 O2 Sat by Pulse 92 97 Oximetry 07/05/17 12:00 Temperature Pulse Rate 61 Respiratory Rate Blood Pressure O2 Sat by Pulse Oximetry - General Appearance General appearance: well-developed, well-nourished, appears stated age EENT: ATNC, PERRL, mucous membranes moist Neck: no JVD Respiratory: Present: Clear to Ascultation Cardiology: regular, S1S2 Gastrointestinal: normoactive bowel sounds, obese Integumentary: no rash, other (2+ edema b/l LE ) Neurologic: no focal deficit, alert and oriented x3, strength 5/5, CN 3-12 intact Psychiatric: mood/affect appropriate, cooperative - Lab 07/05/17 07:17 07/05/17 07:17 Most recent lab results Calcium 8.2 mg/dL (8.4-10.2) L 07/05/17 07:17 Urine Creatinine 35.2 mg/dL (0.1-20.0) H 07/04/17 19:45 Urine Sodium 133 mmol/L 07/04/17 19:45 Urine Total Protein 350 mg/dL (5-11.8) H 07/04/17 19:45
--- NOTE | 2017-07-05 23:05 | Progress Note ---
Assessment and Plan Assessment and plan: 72 YO Male with Systolic CHF, HTN, DM, CKD-3, Anemia, vitamin D Deficiency admitted directly at the request for [facility] for CHF Decompensation. Pt seen and evaluated upon arrival to telemetry floor. 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 Pt acknowledges leg swelling, and shortness of breath, Orthopnea/PND. Pt denies fever, chill, CP, Palpitations, NVD, Medication Noncompliance, Syncope, Trauma, Productive cough, unilateral leg swelling, prolonged travel/immobility, individual/family history of DVT/PE. Pt found to have symptoms of Acute CHF decompensation. Pt initiated on CHF protocol. (1) CHF (congestive heart failure) Current Visit: Yes Status: Acute Qualifiers: Heart failure type: systolic Heart failure chronicity: acute on chronic Qualified Code(s): I50.23 - Acute on chronic systolic (congestive) heart failure Plan to address problem: Directly Admitted to telemetry as per Cardiology request :Diuresis, supplemental oxygen, nebulizer therapy, strici I/O, Daily weight, further orders and cardiology testing as per cardiology team. (2) Acute respiratory failure Current Visit: Yes Status: Acute Qualifiers: Respiratory failure complication: hypoxia Qualified Code(s): J96.01 - Acute respiratory failure with hypoxia Plan to address problem: supplemental oxygen, nebulizer therapy, treat CHF, diuresis, supportive care, NIPPV as clinically indicated (3) HTN (hypertension) Current Visit: Yes Status: Acute Qualifiers: Hypertension type: essential hypertension Qualified Code(s): I10 - Essential (primary) hypertension Plan to address problem: resume home medication, monitor BP q shift, IV hydralazine prn adjusted BP meds to home regimen. (4) Acute kidney injury on CKD (chronic kidney disease), stage III Current Visit: Yes Status: Acute Plan to address problem: supportive care, monitor uop q shift, strict I/O, avoid nephrotoxic agents Metalazone strateed (5) Diabetes Current Visit: Yes Status: Acute Plan to address problem: Consistent Carbohydrate diet, Insulin, accu check (6) DVT prophylaxis Current Visit: Yes Status: Acute Plan to address problem: SCD to BLE while in bed aNTICIPATE DISCHARGE IN 24-48 HRS History Interval history: PATIENT SEEN AND EXAMINED, continues to improve, still with orthopnea and lower ext swelling Hospitalist Physical - Physical exam Narrative exam: VITAL SIGNS: Reviewed. GENERAL: The patient appeared well nourished and normally developed. Vital signs as documented. HEAD: No signs of head trauma. EYES: Pupils are equal. Extraocular motions intact. EARS: Hearing grossly intact. MOUTH: Oropharynx is normal. NECK: No adenopathy, no JVD. CHEST: Chest with clear breath sounds bilaterally. No wheezes, rales, or rhonchi. CARDIAC: Regular rate and rhythm. S1 and S2, without murmurs, gallops, or rubs. VASCULAR: 2+ bilateral lower extremity edema. Some. Peripheral pulses normal and equal in all extremities. ABDOMEN: Soft, without detectable tenderness. No sign of distention. No rebound or guarding, and no masses palpated. Bowel Sounds normal. MUSCULOSKELETAL: Good range of motion of all major joints. Extremities without clubbing, cyanosis 2+ bilateral lower extremity edema. NEUROLOGIC EXAM: Alert and oriented x 3. No focal sensory or strength deficits. Speech normal. Follows commands. PSYCHIATRIC: Mood normal. SKIN: No rash or lesions. - Constitutional Vitals: Temp Pulse Resp BP Pulse Ox 99.2 F 66 18 177/66 97 07/05/17 20:04 07/05/17 22:07 07/05/17 20:04 07/05/17 22:07 07/05/17 22:00 General appearance: Present: no acute distress Results - Labs CBC & Chem 7: 07/05/17 07:17 07/05/17 07:17 Labs: Laboratory Last Values WBC 5.4 K/mm3 (4.5-11.0) 07/05/17 07:17 RBC 3.69 M/mm3 (3.65-5.03) 07/05/17 07:17 Hgb 10.8 gm/dl (11.8-15.2) L 07/05/17 07:17 Hct 31.9 % (35.5-45.6) L 07/05/17 07:17 MCV 87 fl (84-94) 07/05/17 07:17 MCH 29 pg (28-32) 07/05/17 07:17 MCHC 34 % (32-34) 07/05/17 07:17 RDW 14.5 % (13.2-15.2) 07/05/17 07:17 Plt Count 122 K/mm3 (140-440) L 07/05/17 07:17 Sodium 142 mmol/L (137-145) 07/05/17 07:17 Potassium 3.8 mmol/L (3.6-5.0) 07/05/17 07:17 Chloride 102.7 mmol/L (98-107) 07/05/17 07:17 Carbon Dioxide 26 mmol/L (22-30) 07/05/17 07:17 Anion Gap 17 mmol/L 07/05/17 07:17 BUN 30 mg/dL (9-20) H 07/05/17 07:17 Creatinine 2.4 mg/dL (0.8-1.5) H 07/05/17 07:17 Estimated GFR 27 ml/min 07/05/17 07:17 BUN/Creatinine Ratio 13 % 07/05/17 07:17 Glucose 127 mg/dL (75-100) H 07/05/17 07:17 POC Glucose 181 (70-105) H 07/05/17 21:42 Calcium 8.2 mg/dL (8.4-10.2) L 07/05/17 07:17 Total Bilirubin 0.50 mg/dL (0.1-1.2) 07/03/17 17:33 AST 21 units/L (5-40) 07/03/17 17:33 ALT 16 units/L (7-56) 07/03/17 17:33 Alkaline Phosphatase 136 units/L (35-129) H 07/03/17 17:33 NT-Pro-B Natriuret Pep 2219 pg/mL (0-900) H 07/03/17 17:33 Total Protein 6.7 g/dL (6.3-8.2) 07/03/17 17:33 Albumin 3.5 g/dL (3.9-5) L 07/03/17 17:33 Albumin/Globulin Ratio 1.1 % 07/03/17 17:33 Urine Creatinine 35.2 mg/dL (0.1-20.0) H 07/04/17 19:45 Urine Sodium 133 mmol/L 07/04/17 19:45 Urine Total Protein 350 mg/dL (5-11.8) H 07/04/17 19:45
[2017-07-06] MEDS: CATAPRES PO SCH ×3 (03:09→18:27)
[2017-07-06] MEDS: APRESOLINE PO SCH ×3 (05:24→22:47)
[2017-07-06 07:07] LABS: Calcium 7.6 mg/dL (8.4-10.2)
[2017-07-06] MEDS: HumuLIN R SUB-Q SCH ×4 (08:14→22:49)
[2017-07-06] MEDS: NORVASC PO SCH (09:44)
[2017-07-06] MEDS: BABY ASPIRIN PO SCH (09:44)
[2017-07-06] MEDS: ZAROXOLYN PO SCH (09:45)
[2017-07-06] MEDS: LOPRESSOR PO SCH ×2 (09:45→22:48)
[2017-07-06] MEDS: ZYLOPRIM PO SCH (09:45)
[2017-07-06] MEDS: COZAAR PO SCH ×2 (09:45→14:21)
[2017-07-06] MEDS: LASIX IV SCH ×2 (09:46→22:48)
[2017-07-06] MEDS: SODIUM CHLORIDE FLUSH SYRINGE 10 ML IV SCH ×2 (09:51→22:48)
--- NOTE | 2017-07-06 12:27 | Progress Note ---
Assessment and Plan Acute diastolic heart failure TAPAN on CKD Nephrotic syndrome CAD s/p CABG Accelerated HTN DM Plan: increase hydralzine for better bp control and cont iv lasix as per renal . Subjective Date of service: 07/06/17 Principal diagnosis: HF; TAPAN on CKD Interval history: pt has no sob and sitting in chair Objective Vital Signs Temp Pulse Resp BP BP Pulse Ox 07/06/17 09:45 190/75 07/06/17 09:44 190/75 07/06/17 08:48 98.5 F 55 L 18 190/75 98 07/06/17 05:24 52 L 167/68 07/06/17 04:37 53 L 07/06/17 04:08 97.8 F 52 L 18 167/68 96 07/06/17 03:10 193/84 07/06/17 03:09 59 L 193/84 07/05/17 23:24 98.1 F 50 L 18 157/57 94 07/05/17 22:07 66 177/66 07/05/17 22:00 97 07/05/17 21:56 177/66 07/05/17 20:39 56 L 07/05/17 20:04 99.2 F 54 L 18 177/66 95 07/05/17 16:40 50 L 174/60 97 - Physical Examination HEENT: Positive: PERRL, Normocephaly, Mucus Membranes Moist Neck: Positive: neck supple Cardiac: Positive: Reg Rate and Rhythm Lungs: Positive: clear to auscultation Neuro: Positive: Grossly Intact, Cranial Nerve 2-12 Intact Abdomen: Positive: Soft. Negative: Tender Skin: Positive: Clear. Negative: Rash, Wound Musculoskeletal: No Pain, Normal Range of Motion Extremities: Present: +2 Edema (BLE) - Labs and Meds Comprehensive Metabolic Panel 07/06/17 Range/Units 05:53 Sodium 142 (137-145) mmol/L Potassium 3.6 (3.6-5.0) mmol/L Chloride 101.2 (98-107) mmol/L Carbon Dioxide 25 (22-30) mmol/L BUN 35 H (9-20) mg/dL Creatinine 2.5 H (0.8-1.5) mg/dL Glucose 122 H (75-100) mg/dL Calcium 7.6 L (8.4-10.2) mg/dL - Imaging and Cardiology EKG: report reviewed, image reviewed Echo: report reviewed ( EF 50-55%, impaired relaxation, moderate AV sclerosis without stenosis or regurgitation, moderate pericardial effusion (adjacent to RA ), no evidence of RA collapse or tamponade physiology. ) - EKG Sinus rhythms and dysrhythmias: sinus rhythm
--- NOTE | 2017-07-06 13:07 | Progress Note ---
Assessment and Plan - Patient Problems (1) Acute respiratory failure Current Visit: Yes Status: Acute Qualifiers: Respiratory failure complication: hypoxia Qualified Code(s): J96.01 - Acute respiratory failure with hypoxia Plan to address problem: Acute respiratory failure secondary to congestive heart failure resolving. Patient is stable to go home cardiac-stover. Still need to diurese patient a little more and observe renal function. (2) CHF (congestive heart failure) Current Visit: Yes Status: Acute Qualifiers: Heart failure type: diastolic Heart failure chronicity: acute on chronic Qualified Code(s): I50.33 - Acute on chronic diastolic (congestive) heart failure Plan to address problem: Ejection fraction has been established acute systolic and diastolic heart failure. 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 Blood pressure suboptimally controlled. Hydralazine increased today. (3) Diabetes Current Visit: Yes Status: Acute Qualifiers: Diabetes mellitus type: type 2 Plan to address problem: Patient has optimal control of blood sugar. (4) Fluid overload Current Visit: Yes Status: Acute Plan to address problem: Fluid overload secondary to CHF. Lungs significant improvement patient still has bilateral lower extremity edema significant +3+4 edema. We'll continue to diurese to improve lower extremity edema. We'll need to observe closely as well because of chronic kidney disease. Spoke with Dr. Carr will like to diuresis patient 1-2 more days. (5) HTN (hypertension) Current Visit: Yes Status: Acute Qualifiers: Hypertension type: essential hypertension Qualified Code(s): I10 - Essential (primary) hypertension Plan to address problem: Suboptimal control. Increase hydralazine 100 mg 3 times a day. (6) Nephrotic range proteinuria Current Visit: Yes Status: Acute (7) CKD (chronic kidney disease), stage III Current Visit: Yes Status: Chronic History Interval history: No new events over p.m. Still has lower extremity edema. No chest pain or shortness of breath hospital course at this point unremarkable. Hospitalist Physical - Constitutional Vitals: Temp Pulse Resp BP Pulse Ox 98.5 F 55 L 18 190/75 98 07/06/17 08:48 07/06/17 08:48 07/06/17 08:48 07/06/17 09:45 07/06/17 08:48 General appearance: Present: no acute distress - EENT Eyes: Present: PERRL, EOM intact ENT: hearing intact, clear oral mucosa, dentition normal - Neck Neck: Present: supple, normal ROM. Absent: enlarged thyroid, masses or JVD, carotid bruits - Respiratory Respiratory effort: normal Respiratory: bilateral: CTA - Cardiovascular Rhythm: regular - Extremities Extremities: no ischemia, pulses intact, pulses symmetrical Extremity abnormal: edema (+3) Peripheral Pulses: within normal limits - Abdominal General gastrointestinal: soft, non-tender, non-distended - Integumentary Integumentary: Present: clear, warm, dry - Psychiatric Psychiatric: appropriate mood/affect, intact judgment & insight - Neurologic Neurologic: CNII-XII intact, moves all extremities Results - Labs CBC & Chem 7: 07/05/17 07:17 07/06/17 05:53 Labs: Laboratory Last Values WBC 5.4 K/mm3 (4.5-11.0) 07/05/17 07:17 RBC 3.69 M/mm3 (3.65-5.03) 07/05/17 07:17 Hgb 10.8 gm/dl (11.8-15.2) L 07/05/17 07:17 Hct 31.9 % (35.5-45.6) L 07/05/17 07:17 MCV 87 fl (84-94) 07/05/17 07:17 MCH 29 pg (28-32) 07/05/17 07:17 MCHC 34 % (32-34) 07/05/17 07:17 RDW 14.5 % (13.2-15.2) 07/05/17 07:17 Plt Count 122 K/mm3 (140-440) L 07/05/17 07:17 Sodium 142 mmol/L (137-145) 07/06/17 05:53 Potassium 3.6 mmol/L (3.6-5.0) 07/06/17 05:53 Chloride 101.2 mmol/L (98-107) 07/06/17 05:53 Carbon Dioxide 25 mmol/L (22-30) 07/06/17 05:53 Anion Gap 19 mmol/L 07/06/17 05:53 BUN 35 mg/dL (9-20) H 07/06/17 05:53 Creatinine 2.5 mg/dL (0.8-1.5) H 07/06/17 05:53 Estimated GFR 26 ml/min 07/06/17 05:53 BUN/Creatinine Ratio 14 % 07/06/17 05:53 Glucose 122 mg/dL (75-100) H 07/06/17 05:53 POC Glucose 136 (70-105) H 07/06/17 05:18 Calcium 7.6 mg/dL (8.4-10.2) L 07/06/17 05:53 Total Bilirubin 0.50 mg/dL (0.1-1.2) 07/03/17 17:33 AST 21 units/L (5-40) 07/03/17 17:33 ALT 16 units/L (7-56) 07/03/17 17:33 Alkaline Phosphatase 136 units/L (35-129) H 07/03/17 17:33 NT-Pro-B Natriuret Pep 2219 pg/mL (0-900) H 07/03/17 17:33 Total Protein 6.7 g/dL (6.3-8.2) 07/03/17 17:33 Albumin 3.5 g/dL (3.9-5) L 07/03/17 17:33 Albumin/Globulin Ratio 1.1 % 07/03/17 17:33 Urine Creatinine 35.2 mg/dL (0.1-20.0) H 07/04/17 19:45 Urine Sodium 133 mmol/L 07/04/17 19:45 Urine Total Protein 350 mg/dL (5-11.8) H 07/04/17 19:45
--- NOTE | 2017-07-06 13:12 | Progress Note ---
Assessment and Plan - Patient Problems (1) Acute respiratory failure Current Visit: Yes Status: Acute Qualifiers: Respiratory failure complication: hypoxia Qualified Code(s): J96.01 - Acute respiratory failure with hypoxia Plan to address problem: respiratory status improved with IV lasix and metolazone. increased UOP (2) Fluid overload Current Visit: Yes Status: Acute Plan to address problem: likely due to combination of nephrotic syndrome, CKD and chronic diastolic HF. Will cont IV lasix 40mg bid another day along with metolazone 10mg po qd. will titrate diuretics to target net negative fluid balance > 1L/day. Will transition to po lasix in AM. (3) Type 2 diabetes mellitus with diabetic chronic kidney disease Current Visit: Yes Status: Chronic Qualifiers: Chronic kidney disease stage: stage 3 (moderate) Plan to address problem: glucose control as per primary attending (4) Nephrotic range proteinuria Current Visit: Yes Status: Acute Plan to address problem: urine protein/cr ratio of ~10g/g, likely secondary to diabetic nephropathy. cont losartan. glucose control as per primary attending. Will consider renal biopsy as outpatient to rule out proteinuric GN (5) CHF (congestive heart failure) Current Visit: Yes Status: Acute Qualifiers: Heart failure type: diastolic Heart failure chronicity: acute on chronic Qualified Code(s): I50.33 - Acute on chronic diastolic (congestive) heart failure Plan to address problem: cont BB, diuresis with lasix/metolazone. fluid restriction to 1.5L/day, daily weight, strict I/Os (6) Hypertensive chronic kidney disease with stage 1 through stage 4 chronic kidney disease, or unspecified chronic kidney disease Current Visit: Yes Status: Chronic Plan to address problem: BP improved, monitor on current meds. (7) CKD (chronic kidney disease), stage III Current Visit: Yes Status: Chronic Plan to address problem: due to underlying diabetic nephropathy/hypertensive nephrosclerosis. current eGFR marginally worse than baseline in the setting of IV diuresis. avoid nephrotoxins, NSAIDs, IV contrast Subjective Date of service: 07/06/17 Principal diagnosis: HF; TAPAN on CKD Interval history: Pt awake, alert, in NAD, responding to IV lasix with increased UOP Objective - Vital Signs Vital signs: Vital Signs - 12hr 07/06/17 07/06/17 07/06/17 03:09 03:10 04:08 Temperature 97.8 F Pulse Rate 59 L 52 L Respiratory 18 Rate Blood Pressure 193/84 167/68 Blood Pressure 193/84 [Left] O2 Sat by Pulse 96 Oximetry 07/06/17 07/06/17 07/06/17 04:37 05:24 08:48 Temperature 98.5 F Pulse Rate 53 L 52 L 55 L Respiratory 18 Rate Blood Pressure 167/68 190/75 Blood Pressure [Left] O2 Sat by Pulse 98 Oximetry 07/06/17 07/06/17 09:44 09:45 Temperature Pulse Rate Respiratory Rate Blood Pressure 190/75 190/75 Blood Pressure [Left] O2 Sat by Pulse Oximetry - General Appearance General appearance: well-developed, well-nourished, appears stated age EENT: ATNC, PERRL, mucous membranes moist Neck: no JVD Respiratory: Present: Clear to Ascultation Cardiology: regular, S1S2 Gastrointestinal: normoactive bowel sounds Integumentary: no rash, other (2+ b/l LE edema ) Neurologic: no focal deficit, alert and oriented x3, strength 5/5, CN 3-12 intact Psychiatric: mood/affect appropriate, cooperative - Lab 07/05/17 07:17 07/06/17 05:53 Most recent lab results Calcium 7.6 mg/dL (8.4-10.2) L 07/06/17 05:53 Urine Creatinine 35.2 mg/dL (0.1-20.0) H 07/04/17 19:45 Urine Sodium 133 mmol/L 07/04/17 19:45 Urine Total Protein 350 mg/dL (5-11.8) H 07/04/17 19:45
[2017-07-06] MEDS: APRESOLINE IV PRN (18:32)
[2017-07-07] MEDS: CATAPRES PO SCH ×2 (02:08→10:01)
[2017-07-07 05:14] VITALS: BP 161/56
[2017-07-07] MEDS: APRESOLINE PO SCH ×2 (05:36→13:33)
[2017-07-07] MEDS: HumuLIN R SUB-Q SCH ×2 (07:42→13:31)
--- NOTE | 2017-07-07 08:18 | Progress Note ---
Assessment and Plan - Patient Problems (1) Nephrotic range proteinuria Current Visit: Yes Status: Acute Plan to address problem: urine protein/cr ratio of ~10g/g, likely secondary to diabetic nephropathy. cont losartan. glucose control as per primary attending. Cont lasix 40mg po bid along with metolazone 5mg po qd upon discharge. Stable for discharge from renal stand point with outpatient f/u in 1 week. Will consider renal biopsy as outpatient to rule out other proteinuric GN (2) Acute respiratory failure Current Visit: Yes Status: Acute Qualifiers: Respiratory failure complication: hypoxia Qualified Code(s): J96.01 - Acute respiratory failure with hypoxia Plan to address problem: respiratory status improved with IV lasix and metolazone. will transition to po lasix and metolazone (3) Fluid overload Current Visit: Yes Status: Acute Plan to address problem: likely due to combination of nephrotic syndrome, CKD and chronic diastolic HF, now improved with IV lasix. Will transition to po lasix. (4) Type 2 diabetes mellitus with diabetic chronic kidney disease Current Visit: Yes Status: Chronic Qualifiers: Chronic kidney disease stage: stage 3 (moderate) Plan to address problem: glucose control as per primary attending (5) CHF (congestive heart failure) Current Visit: Yes Status: Acute Qualifiers: Heart failure type: diastolic Heart failure chronicity: acute on chronic Qualified Code(s): I50.33 - Acute on chronic diastolic (congestive) heart failure Plan to address problem: cont BB, diuresis with lasix/metolazone. fluid restriction to 1.5L/day, daily weight, strict I/Os (6) Hypertensive chronic kidney disease with stage 1 through stage 4 chronic kidney disease, or unspecified chronic kidney disease Current Visit: Yes Status: Chronic Plan to address problem: BP improved, monitor on current meds. (7) CKD (chronic kidney disease), stage III Current Visit: Yes Status: Chronic Plan to address problem: due to underlying diabetic nephropathy/hypertensive nephrosclerosis. current eGFR marginally worse than baseline in the setting of IV diuresis. avoid nephrotoxins, NSAIDs, IV contrast Subjective Date of service: 07/07/17 Principal diagnosis: HF; TAPAN on CKD Interval history: Pt awake, alert, in NAD, improved b/l LE edema Objective - Vital Signs Vital signs: Vital Signs - 12hr 07/06/17 07/06/17 07/06/17 20:24 22:35 22:47 Temperature Pulse Rate 49 L 57 L Pulse Rate [ 57 L Apical] Respiratory 20 Rate Blood Pressure 125/57 O2 Sat by Pulse 98 Oximetry 07/06/17 07/07/17 07/07/17 22:48 00:04 02:08 Temperature 98.2 F Pulse Rate 57 L 56 L 56 L Pulse Rate [ Apical] Respiratory 18 Rate Blood Pressure 125/57 148/53 148/53 O2 Sat by Pulse 96 Oximetry 07/07/17 07/07/17 04:46 05:36 Temperature 98.5 F Pulse Rate 62 62 Pulse Rate [ Apical] Respiratory 18 Rate Blood Pressure 161/56 161/56 O2 Sat by Pulse 95 Oximetry - General Appearance General appearance: well-developed, well-nourished, appears stated age EENT: ATNC, PERRL, mucous membranes moist Neck: no JVD Respiratory: Present: Clear to Ascultation Cardiology: regular, S1S2 Gastrointestinal: normoactive bowel sounds Integumentary: no rash, other (1-2+ edema b/lLE ) Neurologic: no focal deficit, alert and oriented x3, strength 5/5, CN 3-12 intact Psychiatric: mood/affect appropriate, cooperative - Lab 07/05/17 07:17 07/06/17 05:53 Most recent lab results Calcium 7.6 mg/dL (8.4-10.2) L 07/06/17 05:53 Urine Creatinine 35.2 mg/dL (0.1-20.0) H 07/04/17 19:45 Urine Sodium 133 mmol/L 07/04/17 19:45 Urine Total Protein 350 mg/dL (5-11.8) H 07/04/17 19:45
[2017-07-07] MEDS: LOPRESSOR PO SCH (09:45)
[2017-07-07] MEDS: BABY ASPIRIN PO SCH (09:46)
[2017-07-07] MEDS: NORVASC PO SCH (09:46)
[2017-07-07] MEDS: SODIUM CHLORIDE FLUSH SYRINGE 10 ML IV SCH (09:48)
[2017-07-07] MEDS: COZAAR PO SCH (09:48)
[2017-07-07] MEDS: ZYLOPRIM PO SCH (09:50)
[2017-07-07] MEDS ORDERED: ZAROXOLYN PO SCH (10:00)
[2017-07-07] MEDS ORDERED: LASIX PO SCH (10:00)
--- NOTE | 2017-07-07 11:37 | Progress Note ---
Assessment and Plan Acute diastolic heart failure TAPAN on CKD Nephrotic syndrome CAD s/p CABG Accelerated HTN DM Plan: BP is improved is on multiple medications Oral Diuretics Patient Will Have Follow-Up Echocardiogram in Office in 1-2 Weeks for Pericardial Effusion Patient May Be Discharged from Cardiovascular Point Discussed with the Patient' s at the Bedside Detail Subjective Date of service: 07/07/17 Principal diagnosis: HF; TAPAN on CKD Interval history: pt sob has improved and swelling is better Objective Vital Signs Temp Pulse Pulse Resp BP Pulse Ox 07/07/17 10:01 62 161/56 07/07/17 09:48 62 161/56 07/07/17 09:46 62 161/56 07/07/17 09:45 62 161/56 07/07/17 05:36 62 161/56 07/07/17 04:46 98.5 F 62 18 161/56 95 07/07/17 02:08 56 L 148/53 07/07/17 00:04 98.2 F 56 L 18 148/53 96 07/06/17 22:48 57 L 125/57 07/06/17 22:47 57 L 125/57 07/06/17 22:35 57 L 20 98 07/06/17 20:24 49 L 07/06/17 19:20 98.2 F 57 L 18 125/57 98 07/06/17 16:30 97.6 F 56 L 18 190/68 96 07/06/17 14:20 190/65 07/06/17 12:37 97.6 F 18 190/65 - Physical Examination HEENT: Positive: PERRL, Normocephaly, Mucus Membranes Moist Neck: Positive: neck supple Cardiac: Positive: Reg Rate and Rhythm Lungs: Positive: clear to auscultation Neuro: Positive: Grossly Intact, Cranial Nerve 2-12 Intact Abdomen: Positive: Soft. Negative: Tender Skin: Positive: Clear. Negative: Rash, Wound Musculoskeletal: No Pain, Normal Range of Motion Extremities: Present: +1 Edema - Imaging and Cardiology EKG: report reviewed, image reviewed Echo: report reviewed ( EF 50-55%, impaired relaxation, moderate AV sclerosis without stenosis or regurgitation, moderate pericardial effusion (adjacent to RA ), no evidence of RA collapse or tamponade physiology. ) - Telemetry EKG Rhythm: Sinus Rhythm (no afib or vtach noted) - EKG Sinus rhythms and dysrhythmias: sinus rhythm
--- NOTE | 2017-07-07 12:50 | Discharge Summary ---
Providers - Providers Date of Admission: 07/03/17 16:46 Date of discharge: 07/07/17 Attending physician: MELLISSA CONCEPCION 07/03/17 20:51 Consult to Physician [CONS] Routine Comment: Consulting Provider: NITISH GAYTAN Physician Instructions: Reason For Exam: chf 07/04/17 08:51 Consult to Physician [CONS] Routine Comment: Consulting Provider: NOÉ LEI Physician Instructions: Reason For Exam: CKD Primary care physician: KAMI DIEZ Hospitalization Condition: Fair Pertinent studies: Echocardiogram normal ejection fraction some diastolic heart failure Hospital course: Patient 73 years old with a history of coronary artery disease status post CABG 5, hypertension, diabetes, presents as a direct admit from manager physical for acute respiratory failure. Upon admission patient was found to have lower extremity edema accelerated hypertension. Edema was multifactorial patient found to have nephrotic range proteinuria on exam. Renal consult obtained patient stabilized and will be followed up as outpatient for possible kidney biopsy. Acute respiratory failure improved with diuresis and correction of accelerated hypertension. Disposition: TO HOME OR SELFCARE - Discharge Diagnoses (1) Acute respiratory failure Status: Acute Qualifiers: Respiratory failure complication: hypoxia Qualified Code(s): J96.01 - Acute respiratory failure with hypoxia Comment: Q respiratory failure multifactorial secondary to proteinuria as well as diastolic heart failure. Patient placed on 40 mg Lasix twice daily and metolazone 5 mg once daily. Follow-up with renal and cardiology 5-7 days. (2) CHF (congestive heart failure) Status: Acute Qualifiers: Heart failure type: diastolic Heart failure chronicity: acute on chronic Qualified Code(s): I50.33 - Acute on chronic diastolic (congestive) heart failure Comment: Diastolic heart failure may require follow-up echocardiogram as far as discharge. (3) Diabetes Status: Acute Qualifiers: Diabetes mellitus type: type 2 Comment: Abuse it this time to be diet controlled. Follow with sliding scale insulin coverage. Came be managed via primary care physician as outpatient. (4) Fluid overload Status: Resolved (5) HTN (hypertension) Status: Acute Qualifiers: Hypertension type: essential hypertension Qualified Code(s): I10 - Essential (primary) hypertension Comment: Patient has accelerated hypertension much better controlled. Hydralazine increased patient also on Lopressor and losartan (6) Nephrotic range proteinuria Status: Acute (7) CKD (chronic kidney disease), stage III Status: Chronic Comment: Now nephrotic range proteinuria diuresis is indicated may require biopsy as outpatient. Core Measure Documentation - Palliative Care Palliative Care/ Comfort Measures: Not Applicable - Core Measures Any of the following diagnoses?: none Exam - Constitutional Vitals: Temp Pulse Resp BP Pulse Ox 98.5 F 62 18 161/56 95 07/07/17 04:46 07/07/17 10:01 07/07/17 04:46 07/07/17 10:01 07/07/17 04:46 General appearance: Present: no acute distress, well-nourished - EENT Eyes: Present: PERRL ENT: hearing intact, clear oral mucosa - Neck Neck: Present: supple, normal ROM - Respiratory Respiratory effort: normal Respiratory: bilateral: CTA - Cardiovascular Heart Sounds: Present: S1 & S2. Absent: rub, click - Extremities Extremities: pulses symmetrical Extremity abnormal: edema, other (+3 pitting edema significant improvement.) Peripheral Pulses: within normal limits - Abdominal General gastrointestinal: Present: soft, non-tender, non-distended, normal bowel sounds Male genitourinary: Present: normal - Integumentary Integumentary: Present: clear, warm, dry - Musculoskeletal Musculoskeletal: gait normal, strength equal bilaterally - Psychiatric Psychiatric: appropriate mood/affect, intact judgment & insight - Neurologic Neurologic: CNII-XII intact, moves all extremities Plan Activity: no restrictions, advance as tolerated Weight Bearing Status: Full Weight Bearing Diet: low fat, diabetic Special Instructions: restrict fluid intake to Follow up with: KAMI DIEZ MD [Primary Care Provider] - 7 Days Prescriptions: amLODIPine [Norvasc] 10 mg PO DAILY #30 tablet cloNIDine [Catapres] 0.2 mg PO BID #60 tablet Furosemide [Lasix TAB] 40 mg PO BID #60 tablet hydrALAZINE [Apresoline TAB] 100 mg PO Q8HR #60 tablet Losartan [Cozaar] 50 mg PO QDAY #30 tablet Metolazone [Zaroxolyn] 5 mg PO QDAY #30 tablet Metoprolol [Lopressor TAB] 100 mg PO BID #60 tablet
[2017-07-07 13:28] LABS: Calcium 8.2 mg/dL (8.4-10.2)
== END 2017-07-07 23:43 | disposition home or self-care (01) | DRG 291 ==
LOC: 4A 14:06 → UNDOADMIN 14:06 → 4A 16:46
PROVIDERS: ADMIT Internal Medicine; ATTEND Internal Medicine
DX: I13.0 Hypertensive heart and chronic kidney disease with heart failure and stage 1 through stage 4 chronic kidney disease, or unspecified chronic kidney disease (principal); I50.43 Acute on chronic combined systolic (congestive) and diastolic (congestive) heart failure; J96.00 Acute respiratory failure, unspecified whether with hypoxia or hypercapnia; N17.9 Acute kidney failure, unspecified; N18.3 Chronic kidney disease, stage 3 (moderate); I25.10 Atherosclerotic heart disease of native coronary artery without angina pectoris; E11.22 Type 2 diabetes mellitus with diabetic chronic kidney disease; R80.9 Proteinuria, unspecified; E87.70 Fluid overload, unspecified; E11.21 Type 2 diabetes mellitus with diabetic nephropathy; Z95.1 Presence of aortocoronary bypass graft; Z85.9 Personal history of malignant neoplasm, unspecified; Z82.49 Family history of ischemic heart disease and other diseases of the circulatory system; Z83.3 Family history of diabetes mellitus
CPT/HCPCS: 36415; 71045; 80048; 80053; 82570; 82962; 83880; 84156; 84300; 85027; 93005; 93010; J0360; J1815; J1940